=== PATIENT | male | born 1985 | race Caucasian/White ===

== ENCOUNTER → 2020-06-01 | Outpatient (CLI) | payer OTHER ==
[~2020-06-01] VITALS: Ht 182.9 cm; Wt 109.1 kg
[~2020-06-01] MED LIST: GADOBUTROL 7.5 MMOL/7.5 ML (GADAVIST) VIAL IV ONE; IOHEXOL 240 MGI/ML 50 ML (OMNIPAQUE) VIAL IV ONE
--- NOTE | 2020-06-01 13:28 | Diagnostic Imaging Report ---
INDICATION: Left shoulder injury and pain. Patient brought to the procedure and placed on table in supine position. Skin of the left shoulder was prepped and draped usual sterile fashion. Small amount of 1% lidocaine was utilized for local anesthesia. 20-gauge needle was advanced into left shoulder at the rotator interval. A 15 mm solution of iodinated contrast, normal saline and gadolinium was injected under fluoroscopic observation. Needle was withdrawn and hemostasis was obtained using manual compression. Patient tolerated procedure well and was sent to MRI in satisfactory condition. IMPRESSION: Successful left shoulder injection of gadolinium contrast solution, using fluoroscopy. Dictated by: Dictated on workstation # [id number]
--- NOTE | 2020-06-01 14:22 | Diagnostic Imaging Report ---
MRI LT UPPER EXT JOINT WITH Technique: Multiplanar, multisequence MR imaging of the left shoulder was performed with intra-articular contrast. Comparison: None available. Indication: Left shoulder pain Findings: Rotator cuff: The supraspinatus, infraspinatus, teres minor and subscapularis are all intact. There is no rotator cuff muscle atrophy. Glenoid labrum: Nondisplaced tear of the superior labrum oriented anterior to posterior direction (SLAP tear). No associated para labral cyst. The middle glenohumeral ligament is intact. Inferior glenohumeral ligaments are also intact. Long head of biceps: Long head of biceps is intact and the labral tear does not propagate into the intracapsular segment long head of the biceps. Extracapsular segment in long head of biceps is in normal position. Bones and cartilage: Humeral head is normal in morphology without fracture or focal osseous lesion. No glenohumeral chondromalacia. The acromioclavicular joint is normal in alignment without significant degenerative change. Soft tissues: No proliferative synovitis or loose bodies in the glenohumeral joint. No MRI findings to suggest adhesive capsulitis. No fluid or inflammatory like signal within the subacromial/subdeltoid space to indicate bursitis. IMPRESSION: 1. Nondisplaced superior labral tear. 2. Long head of biceps remains intact and is not involved by the labral tear. 3. No rotator cuff tear. Dictated by: Dictated on workstation # [id number]
== END ==
LOC: RAD 12:45
PROVIDERS: ATTEND Orthopaedic Surgery
DX: S43.432A Superior glenoid labrum lesion of left shoulder, initial encounter (principal); X58.XXXA Exposure to other specified factors, initial encounter
CPT/HCPCS: 23350; 73040; 73222

== ENCOUNTER 2020-07-13 05:35 | Outpatient (CLI) | payer OTHER ==
[~2020-07-13] VITALS: Ht 185.5 cm; Wt 106.8 kg
== END 2020-07-13 12:10 | disposition home or self-care (01) ==
LOC: PREOP 05:35
PROVIDERS: ATTEND Orthopaedic Surgery
DX: Z01.818 Encounter for other preprocedural examination (principal)

== ENCOUNTER 2020-07-18 09:08 | Day surgery (SDC) | payer OTHER ==
--- NOTE | 2020-07-12 15:09 | HISTORY AND PHYSICAL ---
DATE OF SERVICE: ADMISSION HISTORY AND PHYSICAL DATE OF ADMISSION: 07/18/2020. This will be for outpatient surgery on 07/18/2020 for left shoulder arthroscopic assisted biceps tenodesis. HISTORY OF PRESENT ILLNESS: The patient is a 34-year-old ambidextrous gentleman with complaints of left shoulder pain. He reports he has had left shoulder pain for the last two years, worse with overhead activities. He denies any specific injuries, but he is very active. He reports the pain in the center of his shoulder. He reports it is activity limiting. He underwent an MR arthrogram, which revealed evidence of a left shoulder SLAP tear. Due to functional impairment and failure to improve with conservative measures, the patient has elected to proceed with surgical intervention. REVIEW OF SYSTEMS: No chest pain, no shortness of breath, and no dysuria. PAST MEDICAL HISTORY: Unremarkable. PAST SURGICAL HISTORY: None. PRIMARY CARE PROVIDER: Dr. Srini Barraza. FAMILY HISTORY: Unknown. MEDICATIONS: No known drug allergies. SOCIAL HISTORY: The patient drinks alcohol socially. He denies tobacco use. PHYSICAL EXAMINATION: GENERAL: The patient is well-developed, well-nourished, in no acute distress. HEENT: Normocephalic and atraumatic. Pupils are equal, round, and reactive to light. Oropharynx is clear. NECK: Supple with no lymphadenopathy. LUNGS: Clear to auscultation bilaterally. HEART: Regular rate and rhythm. ABDOMEN: Soft, nontender, and nondistended. EXTREMITIES: The left shoulder demonstrates positive [place]'s maneuver pain with apprehension relieved with relocation, has crepitus with glenohumeral rotation. No gross weakness to external or internal rotation. Mildly positive Neer's and Hawkin sign. IMPRESSION: Left shoulder SLAP tear. PLAN: Left shoulder arthroscopic-assisted biceps tenodesis. The risks, benefits, options, ramifications and recovery were discussed at length with the patient. He understands and wishes to proceed. Job ID: [id number] DocumentID: [id number] Dictated Date: 07/12/2020 14:58:16 Goggles Assembler Date: 07/12/2020 15:08:39 Dictated By: SRINI DEAN MD
[~2020-07-18] VITALS: Ht 185.5 cm; Wt 106.8 kg
[2020-07-18] VITALS (11 sets, daily range): BP systolic 94–153; BP diastolic 58–74
[~2020-07-18 09:08] MED LIST changes: -GADOBUTROL 7.5 MMOL/7.5 ML (GADAVIST) VIAL IV ONE; -IOHEXOL 240 MGI/ML 50 ML (OMNIPAQUE) VIAL IV ONE; +oxyCODONE/APAP 5/325MG (PERCOCET 5) TABLET PO PRN
[2020-07-18] MEDS ORDERED: ceFAZolin INJECTION 1,000 MG in WATER (STERILE) FOR INJECTION 10 ML IV ONE (09:15)
[2020-07-18] MEDS ORDERED: morphine PF (DURAMORPH) 10 MG/10 ML AMP ONE (09:17)
[2020-07-18] MEDS ORDERED: BUPIVACAINE 0.25% 30 ML (SENSORCAINE) VIAL ONE (09:17)
[2020-07-18] MEDS: LACTATED RINGERS 1,000 ML IV PRN ×2 (09:19→11:56)
[2020-07-18] MEDS ORDERED: MIDAZOLAM 2 MG/2 ML (VERSED) VIAL ONE (09:46)
[2020-07-18] MEDS ORDERED: fentaNYL INJ 100 MCG/2 ML AMP ONE (09:46)
[2020-07-18] MEDS ORDERED: proPOfol 200 MG/20 ML (DIPRIVAN) VIAL IV ONE (09:52)
[2020-07-18] MEDS ORDERED: LIDOCAINE PF 2% 5 ML (XYLOCAINE) VIAL ONE (09:52)
[2020-07-18] MEDS ORDERED: SEVOFLURANE (ULTANE) 15 ML INHAL SOLN ONE (09:52)
[2020-07-18] MEDS ORDERED: ROCURONIUM 10 MG/ML 5 ML SYRINGE IV ONE (09:52)
--- NOTE | 2020-07-18 10:26 | Progress Note-Pre Operative ---
Pre-Operative Progress Note H&P Reviewed The H&P was reviewed, patient examined and no changes noted. Date Seen by Provider: Jul 18, 2020 Time Seen by Provider: 10:15 Date H&P Reviewed: Jul 18, 2020 Time H&P Reviewed: 07:11 Pre-Operative Diagnosis: left SLAP SRINI DEAN MD Jul 18, 2020 10:26
--- NOTE | 2020-07-18 10:28 | Progress Note-Post Operative ---
Post-Operative Progess Note Surgeon (s)/Extension Forester (s) Surgeon SRINI DEAN MD Extension Forester: Pierce Kumar Pre-Operative Diagnosis left SLAP tear Post-Operative Diagnosis left SLAP tear Procedure & Operative Findings Date of Procedure 07/18/20 Procedure Performed/Findings left shoulder arthroscopic assisted biceps tenodesis Anesthesia Type GETA Estimated Blood Loss Estimated blood loss (mL): minimal Specimens/Packing Specimens Removed none Packing: none SRINI DEAN MD Jul 18, 2020 10:28
[2020-07-18] MEDS ORDERED: ONDANSETRON 4 MG/2 ML (SDV) Z0FRAN ONE (10:40)
[2020-07-18] MEDS ORDERED: HYDROmorphone 2 MG/ML VIAL (DILAUDID) ONE ×2 (10:46→11:47)
[2020-07-18] MEDS ORDERED: NEOSTIGMINE 3 MG/3 ML VIAL ONE (11:19)
[2020-07-18] MEDS ORDERED: GLYCOPYRROLATE 0.2 MG/ML (ROBINUL) 2 ML VIAL ONE (11:19)
[2020-07-18] MEDS ORDERED: fentaNYL INJ 100 MCG/2 ML AMP IVP ONE (12:00)
[2020-07-18] MEDS ORDERED: morphine INJ 10 MG/ML 1ML (SYR OR VIAL) IVP ONE (12:00)
[2020-07-18] MEDS ORDERED: MEPERIDINE (DEMEROL) INJ 50 MG/ML IVP ONE (12:00)
[2020-07-18] MEDS ORDERED: ONDANSETRON 4 MG/2 ML (SDV) Z0FRAN IVP PRN (12:00)
[2020-07-18] MEDS ORDERED: PROMETHAZINE INJ 25 MG/ML (PHENERGAN) AMP IVP ONE (12:00)
[2020-07-18] MEDS ORDERED: HYDROmorphone 2 MG/ML VIAL (DILAUDID) IV ONE (12:00)
--- NOTE | 2020-07-18 12:30 | Anesthesia-General Post-Op ---
General Patient Condition Mental Status/LOC: Same as Preop Cardiovascular: Satisfactory Nausea/Vomiting: Absent Respiratory: Satisfactory Pain: Controlled Complications: Absent Post Op Complications Complications None Follow Up Care/Instructions Patient Instructions None needed. Anesthesia/Patient Condition Patient Condition Patient is doing well, no complaints, stable vital signs, no apparent adverse anesthesia problems. No complications reported per nursing. LEROY BEAR CRNA Jul 18, 2020 12:30
[2020-07-18] MEDS ORDERED: OXYC1TAB11 PO (12:50)
[2020-07-18] MEDS ORDERED: ONDANSETRON 4 MG/2 ML (SDV) Z0FRAN IVP ONE (14:00)
--- NOTE | 2020-07-18 14:47 | OPERATIVE REPORT ---
DATE OF SERVICE: 07/18/2020 PREOPERATIVE DIAGNOSIS: Left shoulder SLAP tear. POSTOPERATIVE DIAGNOSIS: Left shoulder SLAP tear. PROCEDURE PERFORMED: Left shoulder arthroscopic-assisted biceps tenodesis. SURGEON: Mark Dean MD. TILTING SAW OPERATOR: Pierce Kumar, who assisted throughout the procedure and closed the incisions. ANESTHESIA: General endotracheal by Adriana Hannah CRNA. ESTIMATED BLOOD LOSS: Minimal. DRAINS: None. COMPLICATIONS: None. POSTOPERATIVE PLAN: Sling wear for two weeks and passive range of motion for two weeks. The patient was transferred to the recovery room awake and stable condition. STATEMENT OF MEDICAL NECESSITY: The patient is a 35-year-old ambidextrous gentleman with complaints of left shoulder pain, worse with overhead activities. He had undergone treatment with rest, activity modifications, and therapy without relief. He reported progressive loss of function. He had a positive Sturgeon's maneuver and MR arthrogram revealed evidence of a left shoulder SLAP tear. Due to functional impairment and failure to improve with conservative measures, the patient elected to proceed with the surgical intervention. DESCRIPTION OF PROCEDURE: After risks and benefits of the procedure were discussed and questions were answered, informed consent was signed and placed on the chart, the operative site was confirmed in the preoperative holding area initialed by the surgeon. The patient was then transferred to the operating room and after adequate levels of general endotracheal anesthetic were obtained, a timeout was called, confirming the operative site. Examination under anesthesia was performed, which revealed forward elevation of 170 degrees, external rotation 90 degrees and internal rotation of 80 degrees. The left shoulder and upper extremity were then prepped and draped in the usual sterile fashion. Shoulder joint was injected with 20 mL of fluid and standard posterior portal was placed. A diagnostic arthroscopy was carried out, which revealed no glenoid or humeral head articular wear. The rotator cuff was intact throughout. The biceps anchor demonstrated a type 2 SLAP tear. The remainder of the labrum was intact. Through an anterior portal in the interval between biceps, subscapularis and glenoid, the biceps anchor was released and the stump was debrided with a shaver. The shoulder joint was then copiously irrigated. The portal sites were closed with 4-0 nylon in a simple interrupted fashion. A longitudinal incision was then made in the upper medial arm just distal to the pectoralis insertion. The soft tissues were bluntly dissected. The long head of the biceps was identified and pulled into the wound. This was then whipstitched from the musculotendinous junction extending 3 cm proximally. The remainder of the tendon was excised. The unicortical drill hole was then placed in the bicipital groove just distal to the pectoralis insertion and sutures at the biceps tendon were passed through the biceps button. The button was then passed into the humeral canal. The button was flipped, which pulled the tendon down to the bony surface. This was then oversewn on itself. The shoulder and elbow were taken through range of motion. The repair was stable. The wound was copiously irrigated, 3-0 Vicryl was used to reapproximate the subcutaneous tissue. The skin was closed with 4-0 nylon running alternating horizontal mattress fashion. Incisions were infiltrated with plain Marcaine. Shoulder joint was injected with Duramorph. A soft dressing and sling were applied. The patient was transferred to the recovery room awake and in stable condition. Job ID: [id number] DocumentID: [id number] Dictated Date: 07/18/2020 11:35:10 Health And Wellness Instructor Date: 07/18/2020 14:46:32 Dictated By: MARK DEAN MD
== END 2020-07-18 14:30 | disposition home or self-care (01) ==
LOC: SDC 09:08
PROVIDERS: ATTEND Orthopaedic Surgery
DX: S43.432A Superior glenoid labrum lesion of left shoulder, initial encounter (principal)
CPT/HCPCS: 29828; 87081; C1713

== ENCOUNTER 2020-08-30 11:30 | Outpatient (RCR) | payer OTHER ==
[~2020-08-30 11:30] MED LIST changes: +OXYC1TAB11 PO; -oxyCODONE/APAP 5/325MG (PERCOCET 5) TABLET PO PRN
== END 2020-09-25 16:02 | disposition home or self-care (01) ==
PROVIDERS: ATTEND Orthopaedic Surgery
DX: S43.432D Superior glenoid labrum lesion of left shoulder, subsequent encounter (principal); M75.22 Bicipital tendinitis, left shoulder; X58.XXXD Exposure to other specified factors, subsequent encounter